=== PATIENT | male | born 1965 | race Caucasian/White ===

== ENCOUNTER → 2017-07-27 | Outpatient (CLI) | payer BC ==
--- NOTE | 2017-07-27 09:02 | RAD ---
Right third toe, 2 views, 07/27/2017: History: Injury There is a fracture of the dorsal aspect of the proximal end of the distal phalanx at the DIP joint is seen on the lateral view. There is no significant displacement. No other fracture or dislocation is seen. IMPRESSION: Fracture of the proximal end of the distal phalanx of the middle toe.
== END | disposition home or self-care (01) ==
LOC: PMG 08:15
PROVIDERS: ATTEND Physician Assistant Medical
DX: S92.911A Unspecified fracture of right toe(s), initial encounter for closed fracture (principal); X58.XXXA Exposure to other specified factors, initial encounter; Y93.89 Activity, other specified; Y92.89 Other specified places as the place of occurrence of the external cause; Y99.8 Other external cause status
CPT/HCPCS: 73660